=== PATIENT | female | born 1945 | race Caucasian/White ===

== ENCOUNTER → 2016-09-08 | Outpatient (CLI) | payer OTHER ==
[~2016-09-08] MED LIST: ASPIR 8181 MG PO; CICLOPIROX TOP; CLARITIN10 MG PO; KEFLEX500 MG PO; LASIX 40 MG TAB40 M2 PO; LIPITOR40 MG PO; LISINOPRIL10 MG PO; OMEPRAZOLE40 MG PO; PROPRANOLOL 1010 MG PO; TOPAMAX50 MG PO; ZOLOFT50 MG PO
== END | disposition home or self-care (01) ==
LOC: RAD 08:15
DX: M47.12 Other spondylosis with myelopathy, cervical region (principal)